=== PATIENT | male | born 1950 | race Caucasian/White ===

== ENCOUNTER 2018-10-17 09:57 | Inpatient (IN) | payer MEDICARE ==
[2018-10-17] MEDS ORDERED: Aspirin 81 mg CHEW TAB* 81 MG TAB.CHEW PO ONE (10:05)
[2018-10-17] MEDS ORDERED: Ticagrelor* 90 MG TAB PO ONE ×2 (10:12→10:14)
[2018-10-17] MEDS ORDERED: Heparin for STEMI(*) 5,000 UNITS/ML 1 ML VIAL IV ONE ×2 (10:12→10:13)
[2018-10-17] MEDS ORDERED: Nitroglycerin TAB 0.4 MG* 0.4 MG TAB SL ONE (10:12)
[2018-10-17] MEDS ORDERED: Nitroglycerin TAB 0.4 MG* 0.4 MG TAB ONE (10:12)
[2018-10-17] MEDS ORDERED: nitroGLYCERIN DRIP* 25,000 MCG/250 ML BTL ONE ×2 (10:13→10:19)
[2018-10-17] MEDS ORDERED: Aspirin 81 mg CHEW TAB* 81 MG TAB.CHEW ONE (10:13)
[2018-10-17] MEDS ORDERED: nitroGLYCERIN DRIP* 25,000 MCG/250 ML BTL IV ONE (10:16)
--- OUTSIDE RECORDS SUMMARY | 2018-10-17 10:16 | XMS REPORT | Continuity of Care Document ---
:1950 External Reference #:[id number] Author Name Sofía Block O.D. Address [address] [place] [address] Care Team Providers Name Role Phone Margaret Worrell N.P. Primary Care Physician Unavailable Payers Type Date Identification Numbers Payment Provider Subscriber Policy Number: [id number] [facility] PayID: [id number] [address] [address] [place] [address] Advance Directives Description No Information Available Problems Date Description Provider Status Onset: Essential hypertension Active Onset: Hypercholesterolemia Active Onset: Large prostate Active Onset: 08/02/2017 Localized traumatic opacity Sofía Block O.D. Active Onset: 08/02/2017 Nuclear senile cataract Sofía Block O.D. Active Onset: 08/02/2017 Hypermetropia Sofía Block O.D. Active Onset: 08/02/2017 Regular astigmatism Sofía Block O.D. Active Onset: 08/02/2017 Presbyopia Sofía Block O.D. 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 ETOH Use Denies alcohol use Tobacco Use Start: Unknown Patient has never smoked Recreational Drug Use Denies Drug Use Smoking Status Reviewed: 09/19/18 Patient has never smoked Allergies, Adverse Reactions, Alerts Description No Known Drug Allergies Medications Medication Date Status Form Strength Qnty SIG Indications Ordering Provider Fish Oil / Active Capsules 1000mg 1 by Unknown 0000 mouth every day Aspir-81 / Active Tablets DR 81mg 1 by Unknown 0000 mouth 3x/wee k Hydrochlorothiazide / Active Tablets 25mg Unknown 0000 Atorvastatin Calcium / Active Tablets 20mg Unknown 0000 Losartan Potassium / Active Tablets 100mg Unknown 0000 Immunizations Description No Information Available Vital Signs Description No Information Available Results Description No Information Available Procedures Date Code Description Status 08/02/2017 00490 Determination Of Refractive State Completed 08/02/2017 50484 New Patient Comprehensive Exam Completed Encounters Description No Information Available Plan of Treatment 09/19/2018 - Sofía Block O.D.H26.111 Localized traumatic opacities, right eyeComments:Smoking can increase the risk of developing or worsening any eye related disease, as well as affect your overall health. If you are a smoker, we strongly recommend that you quit.If you are not a smoker, we strongly recommend that you do not start.Follow up:1 year You can expect to have your eyes dilated at your next visit. If Dr. Block orders any additional testing, it may require extra time. We recommend that you bring sunglasses, as dilation drops often make you light sensitive until they wear off. We always recommend you bring someone to drive you home if you are uncomfortable driving with your eyes dilated. If you have any questions before your next visit, feel free to call our office at .H25.13 Age-related nuclear cataract, bilateralComments:You have been diagnosed with cataracts. If you are happy with your vision as it is now, then we willsee you at your next scheduled appointment. If you feel like your vision is getting worse before your scheduled appointment, please call Tammy Becker at [phone].H52.03 Hypermetropia, bilateralComments:You have Hyperopia, or far sightedness, I have given you a prescription for glasses.H52.223 Regular astigmatism, bilateralComments:Astigmatism is a common vision condition that happens when a person's cornea is not symmetrical. Dr. Block has given you a prescription to correct for this.H52.4 PresbyopiaComments:Smoking can increase the risk of developing or worsening any eye related disease, as well as affect your overall health. If you are a smoker, we strongly recommend that you quit.If you are not a smoker, we strongly recommend that you do not start. You have presbyopia. This is when the lens in your eye loses the ability to change focus , and happens as we age. A pair of reading glasses will help you see up close.
--- NOTE | 2018-10-17 10:17 | ED ---
HPI Chest Pain - HPI Summary HPI Summary: Pt is a 68 y/o male who presents to the ED c/o CP. He states the pain began at 9 :00 after shoveling snow. Pt suddenly had CP, diaphoresis, SOB, and became weak and lightheaded. He went inside to sit down and felt better. The non-radiating CP was initially a 5-6/10 and aching, and now is rated as a 3-4/10. He now feels jittery. Pt denies any N/V, HURLEY, or blurred vision. He denies any hx of NH , or having these symptoms ever before. Pt took 81 bpm ASA this morning. Pt has a FHx of NH; his father due to NH. PMHx HTN and HLD. He denies use of Viagra, alcohol, or smoking. STEMI called at 10:13. BP 199/122 while in room. - History of Current Complaint Chief Complaint: EDChestPainROMI Time Seen by Provider: 10/17/18 10:05 Hx Obtained From: Patient Onset/Duration: Started Hours Ago - 9:00, Still Present Timing: Constant Current Severity: Moderate Pain Intensity: 3 Pain Scale Used: 0-10 Numeric Chest Pain Location: Mid Sternal Chest Pain Radiates: No Character: Dull/Aching Aggravating Factor(s): Exertion - Shoveling snow Alleviating Factor(s): Rest Associated Signs and Symptoms: Positive: Chest Pain, Weakness, Shortness of Breath, Lightheadedness, Diaphoresis. Negative: Headaches, Nausea - Allergy/Home Medications Allergies/Adverse Reactions: Allergies Allergy/AdvReac Type Severity Reaction Status Date / Time No Known Allergies Allergy Verified 10/17/18 10:02 PMH/Surg Hx/FS Hx/Imm Hx Endocrine/Hematology History: Denies: Hx Diabetes Cardiovascular History: Reports: Hx Hypercholesterolemia, Hx Hypertension Denies: Hx Myocardial Infarction - Cancer History Cancer Type, Location and Year: Prostate CA - Surgical History Surgery Procedure, Year, and Place: Prostate removal Infectious Disease History: No Infectious Disease History: Denies: Traveled Outside the [place] in Last 30 Days - Family History Known Family History: Positive: Cardiac Disease - [place] - Social History Alcohol Use: None Hx Substance Use: No Substance Use Type: Reports: None Hx Tobacco Use: No Smoking Status (MU): Never Smoked Tobacco Review of Systems Positive: Skin Diaphoresis Negative: Blurred Vision Positive: Chest Pain Positive: Shortness Of Breath Negative: Vomiting, Nausea Neurological: Other - Lightheadedness Positive: Weakness. Negative: Headache All Other Systems Reviewed And Are Negative: Yes Physical Exam - Summary Physical Exam Summary: Appearance: Well appearing, no pain distress Skin: warm, dry, reflects adequate perfusion Head/face: normal Eyes: EOMI, DICK ENT: mucous membranes moist Neck: supple, non-tender Respiratory: CTA, breath sounds present Cardiovascular: RRR, pulses symmetrical Abdomen: non-tender, soft Bowel Sounds: present Musculoskeletal: normal, strength/ROM intact Neuro: normal, sensory motor intact, A&Ox3 Triage Information Reviewed: Yes Vital Signs On Initial Exam: Initial Vitals Temp Pulse Resp BP Pulse Ox 98.1 F 77 18 164/79 98 10/17/18 09:58 10/17/18 09:58 10/17/18 09:58 10/17/18 09:58 10/17/18 09:58 Vital Signs Reviewed: Yes Diagnostics - Vital Signs Vital Signs Temp Pulse Resp BP Pulse Ox 10/17/18 09:58 98.1 F 77 18 164/79 98 - Laboratory Result Diagrams: 10/17/18 10:11 10/17/18 10:11 Lab Statement: Any lab studies that have been ordered have been reviewed, and results considered in the medical decision making process. - EKG 10:09 Cardiac Rate: NL - 79 bpm EKG Rhythm: Sinus Rhythm Summary of EKG Findings: ST elevation in V3-V6, fine ST depression in III Chest Pain Course/Dx - Course Course Of Treatment: Patient presents with symptoms typical of acute coronary syndrome. EKG done on arrival shows ST elevation in V3 through V6. STEMI alert called and catheter lab team came to the bedside. They canceled the chest x-ray. Aspirin, heparin, nitroglycerin drip, beta kim and Brilinta given. Patient taken to the [facility] as soon as able. - Chest Pain Differential Diagnosis/HQI/PQRI: Acute NH, ACS, Angina - Diagnoses Provider Diagnoses: Acute ST elevation myocardial infarction (STEMI) During the Visit The Following Alert/Code Occurred: STEMI - Called at 10:13 - Provider Notifications Discussed Care Of Patient With: Pedrito Kim Time Discussed With Above Provider: 10:15 Instructed by Provider To: Admit As Inpatient - Dr. Kim will come to the ED, and he accepts pt for admission for cardiac cath. - Critical Care Time Critical Care Time: 30-74 min - CCT is EXCLUSIVE of separately billable procedures. Discharge - Sign-Out/Discharge Documenting (check all that apply): Patient Departure - Admit - Discharge Plan Condition: Critical Disposition: ADMITTED TO [facility] - Billing Disposition and Condition Condition: CRITICAL Disposition: Admitted to [facility] - Attestation Statements Document Initiated by Scribe: Yes Documenting Scribe: Megan Harden Provider For Whom Glenna is Documenting (Include Credential): Jackson Gabriel MD Scribe Attestation: Megan Pratt, scribed for Jackson Gabriel MD on 10/17/18 at 1130. Scribe Documentation Reviewed: Yes Provider Attestation: The documentation as recorded by the scribeMegan accurately reflects the service I personally performed and the decisions made by me, Jackson Gabriel MD
[2018-10-17] MEDS ORDERED: Midazolam* 1 MG/ML 10 ML VIAL (10 MG) ONE (10:18)
[2018-10-17] MEDS ORDERED: fentaNYL* 50 MCG/ML 2 ML VIAL (100 MCG VIAL) ONE (10:18)
[2018-10-17] MEDS ORDERED: VERAPAMIL 2.5 MG/ML 2 ML VIAL ** 5 mg/2 ml ONE (10:18)
[2018-10-17] MEDS ORDERED: Heparin(*) 1000 UNIT/ML 10 ML VIAL CATH LAB IV ONE (10:18)
[2018-10-17] MEDS ORDERED: Metoprolol Tartrate IV* 1 MG/ML 5 ML VIAL ONE (10:18)
[2018-10-17] MEDS ORDERED: Metoprolol Tartrate IV* 1 MG/ML 5 ML VIAL IV ONE (10:19)
[2018-10-17] MEDS ORDERED: Heparin DRIP 25,000 UNITS(*) 25,000 UNITS/500 ML BAG ONE (10:19)
[2018-10-17] MEDS ORDERED: Lidocaine 1% INJ* 10 MG/ML 30 ML SDV ONE (10:19)
[2018-10-17] MEDS ORDERED: Heparin 2 UNITS/ML IVPREMIX* 3,000 ML IV ONE (10:19)
[2018-10-17] MEDS ORDERED: Iohexol 350 (CONTRAST) 200 ML MDV IV ONE ×2 (10:19→10:20)
[2018-10-17] MEDS ORDERED: Heparin 2 UNITS/ML IVPREMIX* 1,000 ML IV ONE (10:20)
[2018-10-17 10:26] LABS: ABS Basophils 0.1 10^3/ul (0-0.2); ABS Eosinophils 0 10^3/ul (0-0.6); ABS Lymphocytes 2.6 10^3/ul (1.0-4.8); ABS Monocytes 1.1 10^3/ul (0-0.8); ABS Neutrophils 8.4 10^3/ul (1.5-7.7); ABS Nucleated RBC 0.1 10^3/ul; Eosinophil % 0.4 % (0-6); Hematocrit 49 % (42-52); Hemoglobin 17.2 g/dl (14.0-18.0); Mean Corpuscular HGB Conc 35 g/dl (31-36); Mean Corpuscular Hemoglobin 30 pg (27-31); Mean Corpuscular Volume 85 fL (80-94); Mean Platelet Volume 7.7 fL (7.4-10.4); Nucleated Red Blood Cells % 0.5; Platelet Count 242 10^3/ul (150-450); Red Blood Count 5.71 10^6/ul (4.00-5.40); Red Cell Distribution Width 14 % (10.5-15); White Blood Count 12.1 10^3/ul (3.5-10.8)
[2018-10-17 10:40] LABS: EGFR Non-African American 61.4 (>60)
[2018-10-17 10:43] LABS: INR 0.93 (0.77-1.02)
[2018-10-17] MEDS ORDERED: Iodixanol 320 (CONTRAST) 100 ML SDV ONE (10:45)
[2018-10-17] MEDS ORDERED: Acetaminophen TAB* 325 MG PO PRN (11:45)
[2018-10-17] MEDS ORDERED: Nitroglycerin TAB 0.4 MG* 0.4 MG TAB SL PRN (11:45)
--- NOTE | 2018-10-17 12:14 | HP ---
AMENDED REPORT NOW INCLUDES COSIGNER DESIGNATION DATE OF ADMISSION: 10/17/2018. ATTENDING PHYSICIAN: Dr. Pedrito Kim * (dictated by Anabel Soliz NP). CHIEF COMPLAINT: Substernal chest pain with associated lightheadedness while shoveling snow at 9 o'clock this morning. HISTORY OF PRESENT ILLNESS: This is a pleasant, 68-year-old gentleman with a known history of hypertension, hyperlipidemia, agent orange exposure and prostate cancer who presented to the emergency department on the morning of after developing sternal chest discomfort with associated lightheadedness while shoveling snow. The patient states the pain was ongoing subsequently he drove himself to the emergency department. While being evaluated in the emergency department, EKG was obtained and revealed ST elevation in the anterolateral leads subsequently. A STEMI alert was called. The patient was seen urgently in the emergency department by Cardiology. He had rated his chest pain as 7/10 and stated that it was constant and ongoing since onset around 9 o'clock this morning, again while he was shoveling snow. He denied a history of bleeding and stroke. No radiation of pain. Subsequently, he was given one tablet of sublingual nitroglycerin. The pain reduced to 4/10. Systolic pressure was noted to be greater than 200, diastolic greater than 100. He was given 5mg IV bolus Lopressor, chest pain improved. Given symptomatology and presentation, was consistent with an acute HI. He was given IV nitroglycerin and IV Heparin therapy and taken urgently to the prosthetic lab technician. He denies any history of chest pain prior to presentation, dizziness or syncope, except for this morning. He denies a history of heart disease. PAST MEDICAL HISTORY: Hypertension, hyperlipidemia, prostate cancer, agent orange exposure. PAST SURGICAL HISTORY: Prostate intervention May of 2018. HOME MEDICATIONS: 1. Fish oil 1,000 mg p.o. daily. 2. Aspirin 81 mg a day. 3. HCTZ 25 mg p.o. daily. 4. Atorvastatin 20 mg p.o. daily. 5. Losartan 100 mg a day. ALLERGIES: No known drug allergies. Denies allergy to shellfish or contrast dye. FAMILY HISTORY: Noncontributory. SOCIAL HISTORY: Denies alcohol abuse, drug abuse, tobacco abuse. Otherwise noncontributory. REVIEW OF SYSTEMS: All systems have been reviewed and are otherwise negative, except as mentioned in the HPI. PHYSICAL EXAMINATION VITAL SIGNS; 98.2, 146/80, 73, 13 GENERAL: While being evaluated in the emergency department, the patient was anxious, although cooperative, appears well-nourished; however, he appeared stable. HEENT: Head is atraumatic, normocephalic. Oral mucosa is moist. Tongue is midline. NECK: Supple, trachea midline, no JVD, no carotid bruits. CARDIAC: Normal S1, S2, regular rate and rhythm. No murmur, rub or gallop noted. LUNGS: Auscultated anteriorly. No evidence of adventitious breath sounds, respirations unlabored. GI: Abdomen is protuberant, nontender. Positive bowel sounds active throughout all four quadrants. SKIN: Intact, no evidence of ecchymosis, jaundice or lesions noted. EXTREMITIES: No pedal edema, no clubbing. PERIVASCULAR: 2+ brachial and dorsalis pedis pulses palpable bilaterally and symmetrically. LABORATORY DATA: White blood cell count 12.1, hemoglobin 17.2, hematocrit 49 percent, platelets 242; sodium 138, potassium 3.8, chloride 102, carbon dioxide 28, creatinine 1.1, lactic acid 2.4, glucose 163, AST and ALT were both normal, initial troponin was 0.01, myoglobin 47.6, CK-MB 1.7, TSH pending. Initial EKG at 10:09 a.m. on 10/17/2018: Sinus rhythm, rate of [address] segment elevation with left anterior fascicular block. Chest x-ray pending. ASSESSMENT AND PLAN: 1. Anterolateral STEMI; 1 hour episodes of sternal chest pain after shoveling snow. risk factors include HTN, HLD. 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 Kim. Post procedure he is to be transferred to ICU with continuous telemetry monitoring. Will cycle enzymes, check echo to eval LVEF. Continue ASA , Brilinta, Heparin therapy. We will re evaluated HTN regimen post procedure ideally initiate Bblocker therapy. Will increase statin to high intensity. Will follow closely and make further recommendations post LHC. 2. History of hypertension: The patient was hypertensive upon presentation; however, after administration of 5 mg IV Lopressor, systolic pressure improved to 146. Recommend blood pressure less than 140/80. Will continue to follow. 3. History of hyperlipidemia: On Atorvastatin 20 mg a day. Will likely increase to 80 mg a day and will need repeat LFT's and lipid panel in six to eight weeks. 4. DVT prophylaxis on IV Heparin due to above number 1. 5. Disposition pending course. Further recommendations to be made after left heart catheterization. Patient is full code. Dr. Kim has seen and examined the patient and agrees to the above assessment and plan. ANABEL SOLIZ, KEN [id number]/CPS #: [id number] NOHEMI
[2018-10-17] MEDS ORDERED: NS 0.9% 1000 ML* 750 ML IV ONE (12:35)
[2018-10-17] MEDS: Metoprolol Tartrate TAB* 25 MG PO SCH ×2 (14:10→20:45)
[2018-10-17] MEDS: Atorvastatin* 80 MG TAB PO SCH (17:12)
[2018-10-17 20:38] LABS: Urine Appearance Clear; Urine Blood 1+ (Negative); Urine Color Straw; Urine Ketones Negative (Negative); Urine Protein Negative (Negative); Urine Red Blood Cell Trace(0-2/hpf) (Absent); Urine Urobilinogen Negative (Negative); Urine White Blood Cell Absent (Absent)
[2018-10-17] MEDS: Ticagrelor* 90 MG TAB PO SCH (20:45)
[2018-10-18] MEDS: Metoprolol Tartrate TAB* 25 MG PO SCH ×4 (03:04→21:01)
--- NOTE | 2018-10-18 05:39 | CATH ---
CC: Dr. Pedrito Kim STENT REPORT: DATE OF PROCEDURE: 10/17/18 PROCEDURES: Right radial artery access, bilateral selective coronary cineangiography, left heart cat heterization, left ventriculography, aspiration thrombectomy LAD, stent placement LAD 3.5 x 16 Synerg y drug-eluting stent, high pressure post dilatation. HISTORY: A 68-year-old male with anterolateral ST-elevation infarct. PROCEDURE ACCESS: Right radial artery sheath 6F slender. MEDICATIONS: 1. Subcu lidocaine. 2. IV Versed. 3. IV fentanyl. 4. Heparin 3000 units, verapamil 3 mg, nitroglycerin 300 mcg IA. 5. IV nitroglycerin increased to 15 mcg per minute. 6. Nitroglycerin 200 mcg IC post revascularization. DIAGNOSTIC CATHETER: 5F TIG4, 5F pigtail. GUIDING CATHETER: 6F VL 3.5, wire 14 BMW, which was used to easily cross the thrombotic stenosis in the proximal LAD. Because of a large visible thrombus, a Pronto catheter was used for aspiration thrombectomy, after wh ich the LAD was stented with a 3.5 x 16 Synergy drug-eluting stent, and then post dilated with a 3.5 x 15 NC balloon to 18 atmospheres for 30 seconds. LV gram was then performed. At the end of the pro cedure, his chest pain had dramatically improved, ST elevation was improved. HEMODYNAMICS: Initial AO 125/73. LV post revascularization 116/27, no aortic valve gradient on pullback. ANGIOGRAPHY: RCA. The RCA is large, dominant, with minor proximal luminal irregularity. It supplies a large PDA followed by several smaller posterolaterals. The RCA has minimal calcification. Left main. The left main is normal in size, length, and has no stenosis. LAD. The LAD is moderate, has very mild proximal smooth tapering, then reconstitutes, then before th e first septal, there is a hazy thrombus containing stenosis with distal MARLENI 3 flow. This is follow ed by the first diagonal, which is moderate and has no stenosis, distally the LAD extends to the apex . After aspiration thrombectomy, there is a residual stenosis. After stent deployment and post dilatat ion, there is no residual stenosis, no dissection, MARLENI 3 flow, no loss of branches. LV gram. There is very localized apical akinesis to dyskinesis with LVEF which is hyperdynamic, 55% or greater. CONCLUSION: 1. Single-vessel disease left anterior descending artery, anterolateral ST- elevation infarct presen tation. Excellent angiographic result with drug-eluting stent placement and post dilatation after as piration thrombectomy. 2. Normal left ventricular systolic function with regional wall motion abnormality. 3. Elevated left ventricular end-diastolic pressure, otherwise normal left-sided hemodynamics. 4. Successful right radial artery access. [id number]/[facility] [place] #: [id number]
[2018-10-18 05:51] LABS: EGFR Non-African American 68.7 (>60)
[2018-10-18] MEDS: Aspirin 81 mg CHEW TAB* 81 MG TAB.CHEW PO SCH (09:08)
[2018-10-18] MEDS: Losartan TAB* 25 MG PO SCH (09:08)
[2018-10-18] MEDS: Ticagrelor* 90 MG TAB PO SCH ×2 (09:08→21:01)
[2018-10-18] MEDS: Atorvastatin* 80 MG TAB PO SCH (16:43)
[2018-10-19] MEDS ORDERED: Metoprolol Tartrate TAB* 50 mg PO SCH (09:00)
[2018-10-19] MEDS: Aspirin 81 mg CHEW TAB* 81 MG TAB.CHEW PO SCH (09:15)
[2018-10-19] MEDS: Losartan TAB* 25 MG PO SCH (09:16)
[2018-10-19] MEDS: Ticagrelor* 90 MG TAB PO SCH ×2 (09:16→21:12)
[2018-10-19] MEDS: Atorvastatin* 80 MG TAB PO SCH (17:06)
[2018-10-19] MEDS: Metoprolol Tartrate TAB* 25 MG PO SCH (21:12)
[2018-10-20 09:00] VITALS: BP 142/93
[2018-10-20] MEDS: Losartan TAB* 25 MG PO SCH (09:06)
[2018-10-20] MEDS: Metoprolol Tartrate TAB* 25 MG PO SCH (09:06)
[2018-10-20] MEDS: Ticagrelor* 90 MG TAB PO SCH (09:06)
[2018-10-20] MEDS: Aspirin 81 mg CHEW TAB* 81 MG TAB.CHEW PO SCH (09:06)
--- NOTE | 2018-10-20 09:13 | DS ---
CC: Margaret Worrell NP at [facility] [address] in [place], [place] DISCHARGE SUMMARY: DATE OF ADMISSION: 10/17/18 DATE OF DISCHARGE: 10/20/18 FINAL DIAGNOSIS: Acute anterolateral ST elevation myocardial infarction. SECONDARY DIAGNOSES: Include: 1. Hyperlipidemia. 2. Hypertension. 3. History of prostate cancer. 4. Agent Ever[place] exposure. DISCHARGE MEDICATIONS: Include: 1. Aspirin 81 mg once a day. 2. Atorvastatin 80 mg once a day.(increased from home dosage) 3. Ticagrelor 90 mg twice a day.(new medication) 4. Losartan 100 mg a day.(same as at home). 5. Metoprolol tartrate 25 mg once a day.(new medication). 6. Sublingual nitroglycerin 0.4 mg sublingually p.r.n. as needed.(new medication) HOSPITAL COURSE: The patient is a pleasant 68-year-old gentleman who presented to [facility] on 10/17/18 in the throes of an acute ST segment elevation anterolateral wall myocardial infarction. He was taken emergently to the cardiovascular lab by Dr. Pedrito Kim who found that the patient had a critically stenosed proximal to mid left anterior descending artery lesion with a hazy thrombus present. The patient underwent thrombectomy and placement of a 3.5 x 16 mm long drug-eluting stent post dilated to high pressures. At the end of the case, there was MARLENI III flow and there was dramatic improvement of his ST segments. His right coronary artery had mild proximal irregularities with minimal calcification in the right coronary artery system. The left main was normal in size. The left ventriculogram showed apical akinesis to dyskinesis with an EF hyperdynamic 55% or greater. The circumflex was reported on the hand written report as being normal. During the course of the hospitalization, the patient's MB peaked at 23.7. His EKG over time developed progressive evolving ST segment changes with preservation of the R-wave, albeit poor progression of the R-wave, across the precordial leads. He had bradycardia and his beta kim was reduced to metoprolol tartrate 25 mg twice a day. On the day of discharge, his vital signs were stable. His neck was supple. There was no increased JVP. Carotids had a good upstroke and volume without bruits. Conjunctivae were pink. Sclera were clear. Lungs revealed no accessory muscle usage. There was good excursion. Lungs had no active rales, rhonchi, or wheezes. Heart revealed no visible heaves. No palpable heaves or thrills. Normal S1, S2 with no S3, S4 gallop. No significant systolic or diastolic murmur. Bradycardic rate was noted. Abdomen: Soft and nontender. Extremities: Without edema. The right radial artery area was well healed with good antegrade flow and no bruit. Neuro: The patient is alert and oriented with normal mentation. Musculoskeletal: The patient with normal gait. Psychiatric: The patient with normal affect. The patient was given a cardiovascular education booklet in addition to his stent card and followup appointment is scheduled with Dr. Kim to see on next 10/28/18 at 3 p.m. With regard to his medications, he was given a 5-day supply of his new medications and pending this [facility] his monthly medications for either Saturday or Saturday. This was arranged through our welfare case worker, Ingrid, on . [id number]/CPS #: [id number]
== END 2018-10-20 12:45 | disposition home or self-care (01) | DRG 247 ==
LOC: ED 09:57 → CHICATH 10:19 → ICU 11:47 → MEDTELE 10-18 13:37
PROVIDERS: ADMIT Internal Medicine Cardiovascular Disease; ATTEND Internal Medicine Cardiovascular Disease
PROC: 02C03ZZ Extirpation of Matter from Coronary Artery, One Artery, Percutaneous Approach (ICD-10-PCS; 2018-10-17)
PROC: B2111ZZ Fluoroscopy of Multiple Coronary Arteries using Low Osmolar Contrast (ICD-10-PCS; 2018-10-17)
PROC: 4A023N7 Measurement of Cardiac Sampling and Pressure, Left Heart, Percutaneous Approach (ICD-10-PCS; 2018-10-17)
PROC: B2151ZZ Fluoroscopy of Left Heart using Low Osmolar Contrast (ICD-10-PCS; 2018-10-17)
PROC: 027034Z Dilation of Coronary Artery, One Artery with Drug-eluting Intraluminal Device, Percutaneous Approach (ICD-10-PCS; principal; 2018-10-17 10:30)
DX: I21.09 ST elevation (STEMI) myocardial infarction involving other coronary artery of anterior wall (principal); E78.5 Hyperlipidemia, unspecified; I10 Essential (primary) hypertension; R73.9 Hyperglycemia, unspecified; R00.1 Bradycardia, unspecified; I25.10 Atherosclerotic heart disease of native coronary artery without angina pectoris; Z82.49 Family history of ischemic heart disease and other diseases of the circulatory system; Z85.46 Personal history of malignant neoplasm of prostate; Z90.79 Acquired absence of other genital organ(s); Z79.82 Long term (current) use of aspirin; Z79.02 Long term (current) use of antithrombotics/antiplatelets
CPT/HCPCS: 36415; 80048; 80053; 80061; 81003; 81015; 82550; 82553; 83036; 83605; 83721; 83874; 83880; 84443; 84484; 85025; 85347; 85610; 85730; 86850; 86900; 86901; 87641; 93005; 99156; 99157; 99285; A9270-GY; C1725; C1757; C1769; C1876; C1887; C9606-LD; J1644; J2250; J3010; J3490

== ENCOUNTER 2018-10-21 03:08 | Emergency (ER) | payer MEDICARE ==
[2018-10-21 04:25] LABS: ABS Basophils 0 10^3/ul (0-0.2); ABS Eosinophils 0.1 10^3/ul (0-0.6); ABS Lymphocytes 1.4 10^3/ul (1.0-4.8); ABS Monocytes 0.9 10^3/ul (0-0.8); ABS Neutrophils 8.4 10^3/ul (1.5-7.7); ABS Nucleated RBC 0 10^3/ul; Eosinophil % 0.5 % (0-6); Hematocrit 44 % (42-52); Hemoglobin 15.5 g/dl (14.0-18.0); Lymphocyte % 13.2 % (25-47); Mean Corpuscular HGB Conc 35 g/dl (31-36); Mean Corpuscular Hemoglobin 30 pg (27-31); Mean Corpuscular Volume 85 fL (80-94); Mean Platelet Volume 8.2 fL (7.4-10.4); Nucleated Red Blood Cells % 0.2; Platelet Count 230 10^3/ul (150-450); Red Blood Count 5.16 10^6/ul (4.00-5.40); Red Cell Distribution Width 14 % (10.5-15); White Blood Count 10.8 10^3/ul (3.5-10.8)
--- NOTE | 2018-10-21 04:35 | ED ---
HPI Chest Pain - HPI Summary HPI Summary: A 68 year old male brought in by ambulance presents to the ED c/o CP since 23: 30 10/20/2018. The patient reports that he has a Hx of VA and had a stent placed on 10/17/[address] Kim. He claims that Dr. Goldstein told him to call an ambulance if he had any CP after his stent was placed. The patient reports that he was watching TV when he had intermittent CP "where the stent was placed " which he ranks as a 0/10. He states that his CP would last for 10-15 seconds and these episodes would occur about 20 minutes in between. He states that after he took NTG his CP subsided but he still called an ambulance because he had CP before taking NTG. He states that his CP was not similar to when he had his VA. He denies N/V, dyspnea. - History of Current Complaint Chief Complaint: EDChestPainROMI Time Seen by Provider: 10/21/18 04:01 Hx Obtained From: Patient Onset/Duration: Started Hours Ago, Still Present Timing: Intermittent, Lasting Seconds Initial Severity: Mild Current Severity: Mild Pain Intensity: 0 Pain Scale Used: 0-10 Numeric - Additional Pertinent History Primary Care Physician: [id number] - Allergy/Home Medications Allergies/Adverse Reactions: Allergies Allergy/AdvReac Type Severity Reaction Status Date / Time No Known Allergies Allergy Verified 10/17/18 10:02 PMH/Surg Hx/FS Hx/Imm Hx Endocrine/Hematology History: Denies: Hx Diabetes Cardiovascular History: Reports: Hx Hypercholesterolemia, Hx Hypertension Denies: Hx Myocardial Infarction History: Comment Only: Other Problems/Disorders - prostate CA, prostectomy Sensory History: Reports: Hx Contacts or Glasses Denies: Hx Hearing Aid Opthamlomology History: Reports: Hx Contacts or Glasses - Cancer History Cancer Type, Location and Year: Prostate CA - Surgical History Surgery Procedure, Year, and Place: Prostate removal Infectious Disease History: No Infectious Disease History: Denies: Traveled Outside the [place] in Last 30 Days - Family History Known Family History: Positive: Cardiac Disease - VA - Social History Alcohol Use: None Hx Substance Use: No Substance Use Type: Reports: None Hx Tobacco Use: No Smoking Status (MU): Never Smoked Tobacco Review of Systems Positive: Chest Pain Respiratory: Negative - dyspnea Negative: Vomiting, Nausea All Other Systems Reviewed And Are Negative: Yes Physical Exam - Summary Physical Exam Summary: VITAL SIGNS: Reviewed. GENERAL: Patient is a well-developed and nourished MALE who is lying comfortable in the stretcher. Patient is not in any acute respiratory distress. HEAD AND FACE: No signs of trauma. No ecchymosis, hematomas or skull depressions. No sinus tenderness. EYES: PERRLA, EOMI x 2, No injected conjunctiva, no nystagmus. EARS: Hearing grossly intact. Ear canals and tympanic membranes are within normal limits. MOUTH: Oropharynx within normal limits. NECK: Supple, trachea is midline, no adenopathy, no JVD, no carotid bruit, no c- spine tenderness, neck with full ROM. CHEST: Symmetric, no tenderness at palpation LUNGS: Clear to auscultation bilaterally. No wheezing or crackles. CVS: Regular rate and rhythm, S1 and S2 present, no murmurs or gallops appreciated. ABDOMEN: Soft, non-tender. No signs of distention. No rebound no guarding, and no masses palpated. Bowel sounds are normal. EXTREMITIES: FROM in all major joints, no edema, no cyanosis or clubbing. NEURO: Alert and oriented x 3. No acute neurological deficits. Speech is normal and follows commands. SKIN: Dry and warm Triage Information Reviewed: Yes Vital Signs On Initial Exam: Initial Vitals Temp Pulse Resp BP Pulse Ox 99.2 F 58 15 176/101 99 10/21/18 03:15 10/21/18 03:15 10/21/18 03:15 10/21/18 03:15 10/21/18 03:15 Vital Signs Reviewed: Yes Diagnostics - Vital Signs Vital Signs Temp Pulse Resp BP Pulse Ox 10/21/18 03:15 99.2 F 58 15 176/101 99 - Laboratory Lab Results: Lab Results 10/21/18 Range/Units 03:29 WBC 10.8 (3.5-10.8) 10^3/ul RBC 5.16 (4.00-5.40) 10^6/ul Hgb 15.5 (14.0-18.0) g/dl Hct 44 (42-52) % MCV 85 (80-94) fL MCH 30 (27-31) pg MCHC 35 (31-36) g/dl RDW 14 (10.5-15) % Plt Count 230 (150-450) 10^3/ul MPV 8.2 (7.4-10.4) fL Neut % (Auto) 77.7 (38-83) % Lymph % (Auto) 13.2 L (25-47) % [place] % (Auto) 8.3 H (0-7) % Eos % (Auto) 0.5 (0-6) % Baso % (Auto) 0.3 (0-2) % Absolute Neuts (auto) 8.4 H (1.5-7.7) 10^3/ul Absolute Lymphs (auto) 1.4 (1.0-4.8) 10^3/ul Absolute Monos (auto) 0.9 H (0-0.8) 10^3/ul Absolute Eos (auto) 0.1 (0-0.6) 10^3/ul Absolute Basos (auto) 0 (0-0.2) 10^3/ul Absolute Nucleated RBC 0 10^3/ul Nucleated RBC % 0.2 Result Diagrams: 10/21/18 03:29 10/21/18 03:29 Lab Statement: Any lab studies that have been ordered have been reviewed, and results considered in the medical decision making process. - Radiology CXR Radiology Interpretation Completed By: ED Physician - no acute process. Pending official report. - EKG 03:14 Cardiac Rate: NL - 60 bpm EKG Rhythm: Sinus Rhythm Summary of EKG Findings: Q waves in inferior leads. Similar to previous EKG done 10/16/18. 06:32 Cardiac Rate: Bradycardia - 51 bpm EKG Rhythm: Sinus Bradycardia Summary of EKG Findings: Q waves in inferior leads. Re-Evaluation - Re-Evaluation First Eval Re-Evaluation Time: 09:18 Comment: Pt was ambulated around the ED x4. He denies chest pain, lightheadedness, or SOB. BP after ambulation is 206/96. Chest Pain Course/Dx - Course Course Of Treatment: A 68 year old male brought in by ambulance presents to the ED c/o CP since 23:30 10/20/2018. The patient reports that he has a Hx of VA and had a stent placed on 10/17/[address] Kim. He claims that Dr. Goldstein told him to call an ambulance if he had any CP after his stent was placed. The patient reports that he was watching TV when he had intermittent CP "where the stent was placed" which he ranks as a 0/10. He states that his CP would last for 10-15 seconds and these episodes would occur about 20 minutes in between. He states that after he took NTG his CP subsided but he still called an ambulance because he had CP before taking NTG. He states that his CP was not similar to when he had his VA. He denies N/V, dyspnea. His PE was unremarkable. His CXR showed no acute process. His EKG showed NSR at 60 bpm with Q waves in inferior leads. Similar to previous EKG done 10/16/18. His troponin I was remarkable at 1.02. His repeat EKG showed sinus bradycardia at 51 bpm and Q waves in inferior leads again. Pt will be signed out to Dr. Couch pending repeat troponin and disposition. - Diagnoses Provider Diagnoses: Atypical chest pain - Provider Notifications Discussed Care Of Patient With: Keit Goldstein Time Discussed With Above Provider: 05:00 Instructed by Provider To: Other - Suggests repeat troponin and EKG 3 hours from the previous. Discharge - Sign-Out/Discharge Documenting (check all that apply): Sign-Out Patient Signing out patient TO: Jim Couch - Discharge Plan Condition: Stable Disposition: HOME Patient Education Materials: Chest Pain (ED) Referrals: Margaret Worrell [Primary Care Provider] - Kiet Goldstein MD [Medical Doctor] - Additional Instructions: Please follow up with Dr. Goldstein. RETURN TO EMERGENCY DEPARTMENT FOR ANY NEW OR WORSENING SYMPTOMS. - Billing Disposition and Condition Condition: STABLE Disposition: Home - Attestation Statements Document Initiated by Kimibe: Yes Documenting Scribe: Kiet Kenny Provider For Whom Glenna is Documenting (Include Credential): Geovanni Nixon Scriblinsey Attestation: I, Kiet Kenny, richied for Geovanni Nixon on 10/23/18 at 0605. Scribe Documentation Reviewed: Yes Provider Attestation: The documentation as recorded by the Kiet reaves accurately reflects the service I personally performed and the decisions made by me, Geovanni Nixon
[2018-10-21 04:36] LABS: EGFR Non-African American 71.8 (>60)
[2018-10-21 04:53] LABS: INR 0.89 (0.77-1.02)
--- NOTE | 2018-10-21 07:15 | ED ---
Progress - Progress Note Progress Note: This pt was signed out from Dr. Nixon at shift change, pending disposition, awaiting second troponin and CK-MB. Re-Evaluation - Re-Evaluation First Eval Re-Evaluation Time: 09:18 Comment: Pt was ambulated around the ED x4. He denies chest pain, lightheadedness, or SOB. BP after ambulation is 206/96. Course/Dx - Course Course Of Treatment: Patient is signed out by Dr. Nixon. Patient is a 60-year- old male who had a catheterization on Saturday with Dr. Goldstein. He was advised to return to the emergency room if he develops any type of chest pain. Dr. Nixon reports that the patient started having chest pain and he took one nitroglycerin and the symptoms did not improve, therefore he came into the emergency department. Blood work within normal limits except for troponin of 1.02. Dr. Nixon discussed the case with Dr. Goldstein and requested to repeat the second troponin and CK-MB. In the ED course the patient was given Brilinta, ASA and losartan. Patient continues to be asymptomatic. He doesnt have any chest pain. Patient was noticed to have high blood pressure. Dr. Goldstein recommends for the patient to be given Lopressor and hydrochlorothiazide. At this time the blood pressure is 146/82, he is asymptomatic. I discussed the symptoms and results with Dr. Goldstein and he recommends for the patient to be discharged home with follow-up at his office. I discussed all the findings and test results with the patient. Patient was instructed to return to the emergency room immediately if any of the symptoms return or worsens. Plan of care was discussed with the patient, and he understands and agrees. All questions were answered at patient satisfaction. There were no further complaints or concerns. Lung exam before discharge: CTA B/L. Good air exchange. No wheezing or crackles heard. CVS: S1 and S2 present. No murmurs appreciated. Patient is alert and oriented x 3. Patient is hemodynamically stable. Patient will be discharged home with follow up PCP in the next 2-[address] Goldstein. - Diagnoses Provider Diagnoses: Atypical chest pain - Provider Notifications Discussed Care Of Patient With: Kiet Goldstein Time Discussed With Above Provider: 08:59 Instructed by Provider To: Other - I discussed the case with Dr. Goldstein, kinesiotherapist, and reported second troponin and CKMB. He states to let the pt ambulate in the ED and if pt doesn't feel well to call him back, otherwise discharge. [09:25] I called Dr. Goldstein to report pt did well with ambulation, but BP increased. He reports pt is safe for discharge with follow up in his offices. Discharge - Sign-Out/Discharge Documenting (check all that apply): Patient Departure - Discharge home, Receiving Sign-Out Receiving patient FROM: Geovanni Nixon - Discharge Plan Condition: Stable Disposition: HOME Patient Education Materials: Chest Pain (ED) Referrals: Margaret Worrell [Primary Care Provider] - Kiet Goldstein MD [Medical Doctor] - Additional Instructions: Please follow up with Dr. Goldstein. RETURN TO EMERGENCY DEPARTMENT FOR ANY NEW OR WORSENING SYMPTOMS. - Billing Disposition and Condition Condition: STABLE Disposition: Home - Attestation Statements Document Initiated by Scribe: Yes Documenting Scribe: Simona Conroy Provider For Whom Scribe is Documenting (Include Credential): Jim Couch MD Scribe Attestation: I, Simona Conroy, scribed for Jim Couch MD on 10/21/18 at 1757. Scribe Documentation Reviewed: Yes Provider Attestation: The documentation as recorded by the Simona reaves accurately reflects the service I personally performed and the decisions made by me, Jim Couch MD
[2018-10-21] MEDS ORDERED: Losartan TAB* 25 MG PO ONE (08:27)
[2018-10-21] MEDS ORDERED: Aspirin 81 mg CHEW TAB* 81 MG TAB.CHEW PO ONE (08:27)
[2018-10-21] MEDS ORDERED: Ticagrelor* 90 MG TAB PO ONE (08:27)
[2018-10-21] MEDS ORDERED: Metoprolol Tartrate TAB* 25 MG PO ONE (09:26)
[2018-10-21] MEDS ORDERED: Hydrochlorothiazide TAB* 25 MG PO ONE (09:27)
[2018-10-21] MEDS ORDERED: Metoprolol Tartrate TAB* 25 MG ONE (09:28)
[2018-10-21 10:26] VITALS: BP 134/80
== END 2018-10-21 10:37 | disposition home or self-care (01) ==
LOC: ED 03:08
DX: R07.89 Other chest pain (principal); R00.1 Bradycardia, unspecified; I25.2 Old myocardial infarction; Z95.5 Presence of coronary angioplasty implant and graft; Z82.49 Family history of ischemic heart disease and other diseases of the circulatory system
CPT/HCPCS: 36415; 71045; 80053; 82550; 82553; 83605; 83735; 83880; 84484; 85025; 85610; 85730; 93005; 99283; A9270-GY